=== PATIENT | male | born 1990 | race Two or more races ===

== ENCOUNTER 2020-06-29 16:22 | Emergency (ER) | payer SELFPAY ==
[~2020-06-29] VITALS: Ht 188 cm; Wt 117.9 kg
[2020-06-29 16:24] VITALS: BP 147/82
== END 2020-06-29 18:15 | disposition left against medical advice (07) ==
LOC: ER 16:22
DX: K08.89 Other specified disorders of teeth and supporting structures (principal); Z53.21 Procedure and treatment not carried out due to patient leaving prior to being seen by health care provider